=== PATIENT | male | born 1965 | race Two or more races ===

== ENCOUNTER 2025-05-14 15:07 | Inpatient (IN) | payer MEDICAID, OTHER ==
[~2025-05-14] VITALS: Ht 175.3 cm; Wt 80.5 kg
--- NOTE | 2025-05-14 16:26 | ED.PDOC ---
General HPI Comments 59 y.o male presents to the ED for a chief complaint of left sided flank pain radiating to his left side abdomen that started 3 days ago. Patient describes pain as sharp, constant and at this time rates it a 5/10 on the pain scale but does increase to a 10/10 at its worse. Patient denies any history of kidney stones, nausea, vomiting, fever, chills, hematuria or dysuria. Chief Complaint: Flank Pain Time Seen by MD: 15:57 Reviewed notes: Nurses Notes, Medications, Allergies Allergies: Coded Allergies: NO KNOWN ALLERGIES (Unverified , 05/14/25) Information Source: Patient Mode of Arrival: Ambulatory Severity: Moderate Timing: Days (3) Duration: Since onset Onset: Spontaneous Symptoms: None History of: None Location: Abdomen, (L)Flank Penile discharge: None associated signs and symptoms: Abdominal Pain, Flank Pain Past Medical History PAST MEDICAL HISTORY: Denies Surgical History: Denies all surgeries Surgical History (Other): right ankle fx Family History Family History: Reviewed,noncontributory to illness Social History Smoker: Non-Smoker Alcohol: Denies ETOH Use Drugs: Denies Drug Use Lives In: Home Constitutional: denies: chills, diaphoresis, fatigue, fever, malaise, sweats, weakness, others EENTM: denies: blurred vision, double vision, ear bleeding, ear discharge, ear drainage, ear pain, ear ringing, eye pain, eye redness, hearing loss, mouth pain, mouth swelling, nasal discharge, nose bleeding, nose congestion, nose pain, photophobia, tearing, throat pain, throat swelling, voice changes, others Respiratory: denies: cough, hemoptysis, orthopnea, SOB at rest, shortness of breath, SOB with excertion, stridor, wheezing, others Cardiovascular: denies: chest pain, dizzy spells, diaphoresis, Dyspnea on exertion, edema, irregular heart beat, left arm pain, lightheadedness, palpitations, PND, syncope, others Gastrointestinal: reports: abdominal pain; denies: abdomen distended, blood streaked bowels, constipated, diarrhea, dysphagia, difficulty swallowing, hematemesis, melena, nausea, poor appetite, poor fluid intake, rectal bleeding, rectal pain, vomiting, others Genitourinary: reports: flank pain; denies: burning, dysuria, frequency, hematuria, incontinence, penile discharge, penile sore, pain, testicle pain, testicle swelling, urgency, others Neurological: denies: dizziness, fainting, headache, left sided numbness, left sided weakness, numbness, paresthesia, pre-existing deficit, right sided numbness, right sided weakness, seizure, speech problems, tingling, tremors, weakness, others Musculoskeletal: denies: back pain, gout, joint pain, joint swelling, muscle pain, muscle stiffness, neck pain, others Integumetry: denies: bruises, change in color, change in hair/nails, dryness, laceration, lesions, lumps, rash, wounds, others Allergic/Immunocompromised: denies: Difficulty Healing, Frequent Infections, Hives, Itching, others Hematologic/Lymphatic: denies: anemia, blood clots, easy bleeding, easy bruis ing, swollen glands, others Endocrine: denies: excessive hunger, excessive sweating, excessive thirst, exc essive urination, flushing, intolerance to cold, intolerance to heat, unexplained weight gain, unexplained weight loss, others Psychiatric: denies: anxiety, bipolar disorder, depression, hopeless, panic disorder, schizophrenia, sleepless, suicidal, others All Other Systems: Reviewed and Negative Physical Exam General Appearance: No Apparent Distress, Normal HEENT: Normal ENT Inspection, Pharynx Normal, TMs Normal Neck: Full Range of Motion, Non-Tender, Normal, Normal Inspection Respiratory: Chest Non-Tender, Lungs Clear, No Accessory Muscle Use, No Respiratory Distress, Normal Breath Sounds Cardiovascular: No Edema, No JVD, No Murmur, No Gallop, Normal Peripheral Pulses, Regular Rate/Rhythm Breast Exam: Deferred Gastrointestinal: No Organomegaly, No Pulsatile Mass, Tenderness (left sided abdomen ) Genitalia: Deferred Pelvic: Deferred Rectal: Deferred Extremities: No calf tenderness, Normal capillary refill, Normal inspection, Normal range of motion, Non-tender, No pedal edema Musculoskeletal : Apperance: Normal Neurologic: Alert, community health advocate II-XII nml as Tested, No Motor Deficits, Normal Affect, Normal Mood, No Sensory Deficits Cerebellar Function: Normal Reflexes: Normal Skin: Dry, Normal Color, Warm Lymphatic: No Adenopathy Was a procedure done? Was a procedure done?: No Differential Diagnosis Kidney stone (Female): N/A Kidney stone (Male): Pancreatitis, Pyelonephritis, Renal failure, Strain Urinary Problem (Male): UTI Other Differential Diagnosis Diverticulitis X-Ray, Labs, Meds, VS Vital Signs Date Time Temp Pulse Resp B/P (MAP) Pulse Ox O2 Delivery O2 Flow Rate FiO2 05/14/25 15:10 98.1 91 16 156/86 98 98.1 Lab Test 05/14/25 16:15 Range/Units White Blood Count 11.2 H 4.4-10.8 10^3/uL Red Blood Count 5.14 4.5-5.90 10^6/uL Hemoglobin 14.5 13.5-17.5 g/dL Hematocrit 42.5 41.0-53.0 % Mean Corpuscular Volume 82.7 80.0-100.0 fL Mean Corpuscular Hemoglobin 28.1 28.0-32.0 pg Mean Corpuscular Hemoglobin Concent 34.0 32.0-36.0 g/dL Red Cell Distribution Width 13.6 11.8-14.3 % Platelet Count 282 140-450 10^3/uL Mean Platelet Volume 7.7 6.9-10.8 fL Neutrophils (%) (Auto) 67.4 37.0-80.0 % Lymphocytes (%) (Auto) 18.7 10.0-50.0 % Monocytes (%) (Auto) 12.3 H 0.0-12.0 % Eosinophils (%) (Auto) 1.0 0.0-7.0 % Basophils (%) (Auto) 0.6 0.0-2.0 % Neutrophils # (Auto) 7.6 1.6-8.6 10 ^3/uL Lymphocytes # (Auto) 2.1 0.4-5.4 10 ^3/uL Monocytes # (Auto) 1.4 H 0-1.3 10 ^3/uL Eosinophils # (Auto) 0.1 0-0.8 10 ^3/uL Basophils # (Auto) 0.1 0-0.2 10 ^3/uL Nucleated Red Blood Cells 0.1 % Sodium Level 139 136-145 mmol/L Potassium Level 4.4 3.5-5.1 mmol/L Chloride Level 101 98-107 mmol/L Carbon Dioxide Level 28 20-31 mmol/L Anion Gap 10 5-15 Blood Urea Nitrogen 21 9-23 mg/dL Creatinine 1.64 H 0.700-1.30 mg/dL Glomerular Filtration Rate Calc 48 >90 mL/min BUN/Creatinine Ratio 12.8 10.0-20.0 Serum Glucose 107 H 74-106 mg/dL Calcium Level 9.5 8.7-10.4 mg/dL Total Bilirubin 0.6 0.2-1.0 mg/dL Aspartate Amino Transferase (AST) 28 13-40 U/L Alanine Aminotransferase (ALT) 33 7-40 U/L Alkaline Phosphatase 143 H 46-116 U/L Total Protein 7.9 5.7-8.2 g/dL Albumin 4.7 3.2-4.8 g/dL Lipase 58 H 12-53 U/L X-Ray, Labs, Meds, VS Comment Patient has a obstructing renal calculi in the right side with secondary urinary tract infection Patient will be admitted for observation and Urology consult Patient be started on Rocephin 1 g Patient hemodynamically stable Time of 1ST Reevaluation: 16:26 Reevaluation 1ST: Unchanged Patient Education/Counseling: Diagnosis, Treatment, Prognosis, Need For Follow Up Family Education/Counseling: No Family Present SEPSIS Sepsis Screen Date sepsis recognized/suspect: May 14, 2025 Time Sepsis recognized/suspect: 1510 Recent Procedure: No On Antibiotic Therapy: No Respiratory Rate >20: No Heart Rate >90: No Temp<36 C (96.8 F) or >38.3 C: No SBP <90 or MAP <65 mmHG: No New Acute Mental Status Change: No Is the patient on CPAP, BIPAP,: No Physician Orders Urinalysis (05/14/25 16:04) Ct Ab Pel Wo Con-No Oral Or Iv (05/14/25 16:04) Vital Signs Date Time Temp Pulse Resp B/P (MAP) Pulse Ox O2 Delivery O2 Flow Rate FiO2 05/14/25 15:10 98.1 91 16 156/86 98 98.1 Laboratory Tests Test 05/14/25 16:15 White Blood Count 11.2 10^3/uL (4.4-10.8) H Departure 1 Departure Time of Disposition: 18:10 Impression: Primary Impression: Hydronephrosis with renal calculous obstruction Additional Impression: Urinary tract infection Qualified Codes: N30.00 - Acute cystitis without hematuria Disposition: ADMITTED INPATIENT Condition: Stable Discharged With: Self Critical Care Note Critical Care Time?: No Stability Stability form required: No I personally scribed for BRENTON TELLO ([facility]) on 05/14/25 at 16:26. Electronically submitted by Shasha Nguyen ([facility]). BRENTON TELLO May 14, 2025 16:26
[2025-05-14 16:44] LABS: Hematocrit 42.5 % (41.0-53.0); Hemoglobin 14.5 g/dL (13.5-17.5); Mean Corpuscular Hemoglobin 28.1 pg (28.0-32.0); Mean Corpuscular Volume 82.7 fL (80.0-100.0); Nucleated Red Blood Cells % 0.1 %
[2025-05-14 17:00] LABS: Alanine Aminotransferase 33 U/L (7-40); Albumin 4.7 g/dL (3.2-4.8); Anion Gap 10 (5-15); BUN/Creatinine Ratio 12.8 (10.0-20.0); Blood Urea Nitrogen 21 mg/dL (9-23); Calcium 9.5 mg/dL (8.7-10.4); Carbon Dioxide 28 mmol/L (20-31); Chloride 101 mmol/L (98-107); Potassium 4.4 mmol/L (3.5-5.1); Sodium 139 mmol/L (136-145); Total Protein 7.9 g/dL (5.7-8.2)
[2025-05-14 17:01] LABS: Bilirubin, Total 0.6 mg/dL (0.2-1.0)
[2025-05-14 17:06] LABS: Alkaline Phosphatase 143 U/L (46-116); Glucose 107 mg/dL (74-106); Lipase 58 U/L (12-53)
--- NOTE | 2025-05-14 17:33 | DVH ---
CLINICAL HISTORY: abd pain TECHNIQUE: CT of the abdomen and pelvis was performed without intravenous contrast. This exam was performed according to our departmental dose optimization program. Up-to-date CT equipment and radiation dose reduction techniques are utilized as appropriate. CTDI: 14.75 DLP: 861.09 WID: COMPARISON: None FINDINGS: Lower Thorax: Normal-sized heart with trace pericardial fluid. Linear bibasilar scarring or atelectasis. Liver and Biliary system: Normal-sized liver. There is heterogeneous hepatic steatosis. No definite hepatic lesion. The gallbladder is normal caliber. There is no biliary ductal dilatation. Spleen: Unremarkable. Adrenal Glands and Kidneys: Normal adrenal glands. There is an obstructing 4.7 mm calculus in the proximal left ureter resulting in mild left hydroureteronephrosis and left urothelial thickening and periureteral soft tissue stranding. There is bilateral nonspecific perinephric stranding. Bilateral lobulation of the kidneys. Tiny nonobstructing right renal calculi. Pancreas and Retroperitoneum: Unremarkable. Aorta and Major Vessels: Aortoiliac vessels are normal in caliber with mild calcified atherosclerotic plaque. Bowel, Mesentery and Peritoneal space: Normal caliber small and large bowel. There is mild colonic diverticulosis. Normal appendix. No free air or fluid collection. Pelvis: Unremarkable. Abdominal wall and Osseous Structures: Mild left curvature of the lumbar spine. There is multilevel lower thoracic and lumbar spondylosis. No destructive osseous lesion. Tiny sclerotic foci in the proximal femurs and pelvis, likely bone islands. IMPRESSION: 1. Obstructing 4.7 mm calculus in the proximal left ureter causing mild left hydroureteronephrosis and mild left urothelial thickening. 2. Tiny nonobstructing right renal calculi. 3. Heterogeneous hepatic steatosis. 4. Mild colonic diverticulosis.
[2025-05-14 18:53] VITALS: PULSE 94; RESP 19; O2SAT 96
[2025-05-14] MEDS: ONDANSETRON HCL 4 MG/2 ML VIAL IV ONE (18:53)
[2025-05-14 18:54] LABS: Urine Protein, UAD Negative (Negative)
[2025-05-14] MEDS: MORPHINE SULFATE 4 MG/ML SYR/VIAL IV ONE (18:54)
--- NOTE | 2025-05-14 23:12 | DVHHPRES ---
History of Present Illness Resident Creating Document: VERONA SOTO History of Present Illness Patient is a [place] Zealander-speaking 59-year-old male with no significant past medical history, presented to [facility] ED with complaint of left-sided flank pain. Patient reports the pain radiating to the left abdominal area, which began three days ago. Patient describes the pain as sharp and constant. He currently rates it as 7/10 on the pain scale, with episodes reaching 10/10 at its worst. He denies any history of kidney stones, nausea, vomiting, fever, chills, hematuria, or dysuria. Patient reports that he checks his blood pressure and blood glucose levels daily at home, and both have remained within normal limits. On evaluation in the ED, patient is afebrile, blood pressure is 156/97 mmHg. Initial labs show WBC 11.2, creatinine 1.64, serum glucose 107, creatinine 1.64, ALP 143, and lipase 58. Abdominal CT shows obstructing 4.7 mm calculus in the proximal left ureter causing mild left hydroureteronephrosis and mild left urothelial thickening. The patient was started on IV antibiotics and IV fluids. Patient is admitted for further evaluation and management. Past Surgical History Right ankle fracture surgery (2009) Family History: None Smoke: No ALCOHOL: none Drugs: None Lives: with Family Review of Systems Review of Systems Eyes: No Pain, No Vision change, No Conjunctivae inflammation, No Eyelid inflammation, No Other, No Redness ENT: No Ear pain, No Ear discharge, No Nose pain, No Nose discharge, No Nose congestion, No Mouth pain, No Mouth swelling, No Throat pain, No Throat swelling, No Other Cardiovascular: No Chest Pain, No Palpitations, No Orthopnea, No Paroxysmal No Dyspnea, No Edema, No Lt Headedness, No Other Respiratory: No Cough, No Dry, No Shortness of breath, No SOB with exertion, No Wheezing, No Hemoptysis, No Pleuritic Pain, No Sputum, No Other Gastrointestinal: Nausea, Vomiting, Abdominal Pain, No Diarrhea, No Constipation, No Melena, No Hematochezia, No Other Genitourinary: No Dysuria, No Frequency, No Incontinence, No Hematuria, No Retention, No Other Musculoskeletal: No other, No neck pain, No shoulder pain, No arm pain, No back pain, No hand pain, No leg pain, No foot pain Skin: No Rash, No Lesions, No Jaundice, No Bruising, No Other Allergies: Coded Allergies: NO KNOWN ALLERGIES (Unverified , 05/14/25) Exam Vital Signs Vital Signs Date Time Temp Pulse Resp B/P (MAP) Pulse Ox O2 Delivery O2 Flow Rate FiO2 05/14/25 19:30 91 17 156/97 (116) 97 05/14/25 18:53 Room Air* 0 21 05/14/25 18:53 98.0 98.0 Exam General Appearance: Cooperative. Well developed. Well nourished. NAD Head Exam: Normal inspection Neck Exam: Normal inspection. Non-tender. Normal alignment Pulmonary/Respiratory: Chest non-tender. Clear bilateral breath sounds, no crackles, no wheezing. Cardiovascular/Chest: Regular rate and rhythm. No murmurs. No JVD. Peripheral Pulses: 2+ Radial (R). 2+ Radial (L). 2+ Pedal (R). 2+ Pedal (L) Abdominal Exam: Tenderness to palpation in the left lower quadrant (LLQ) and left upper quadrant (LUQ). Left CVA tenderness. Normal bowel sounds. Soft. normal abdomen, no visible veins, No hepatospenomegaly. No masses Ankle Exam: Negative ankle edema Lower extremities: Negative lower extremity edema Neuro/Mental Status: A&O x4. Coherent. Thoughts/Psych: Normal thought pattern. Appropriate mood and affect. Good judgement and insight Skin Exam: Normal inspection. Normal color. Warm. Dry Labs/Xrays Labs Test 05/14/25 16:15 05/14/25 15:56 Range/Units White Blood Count 11.2 H 4.4-10.8 10^3/uL Red Blood Count 5.14 4.5-5.90 10^6/uL Hemoglobin 14.5 13.5-17.5 g/dL Hematocrit 42.5 41.0-53.0 % Mean Corpuscular Volume 82.7 80.0-100.0 fL Mean Corpuscular Hemoglobin 28.1 28.0-32.0 pg Mean Corpuscular Hemoglobin Concent 34.0 32.0-36.0 g/dL Red Cell Distribution Width 13.6 11.8-14.3 % Platelet Count 282 140-450 10^3/uL Mean Platelet Volume 7.7 6.9-10.8 fL Neutrophils (%) (Auto) 67.4 37.0-80.0 % Lymphocytes (%) (Auto) 18.7 10.0-50.0 % Monocytes (%) (Auto) 12.3 H 0.0-12.0 % Eosinophils (%) (Auto) 1.0 0.0-7.0 % Basophils (%) (Auto) 0.6 0.0-2.0 % Neutrophils # (Auto) 7.6 1.6-8.6 10 ^3/uL Lymphocytes # (Auto) 2.1 0.4-5.4 10 ^3/uL Monocytes # (Auto) 1.4 H 0-1.3 10 ^3/uL Eosinophils # (Auto) 0.1 0-0.8 10 ^3/uL Basophils # (Auto) 0.1 0-0.2 10 ^3/uL Nucleated Red Blood Cells 0.1 % Sodium Level 139 136-145 mmol/L Potassium Level 4.4 3.5-5.1 mmol/L Chloride Level 101 98-107 mmol/L Carbon Dioxide Level 28 20-31 mmol/L Anion Gap 10 5-15 Blood Urea Nitrogen 21 9-23 mg/dL Creatinine 1.64 H 0.700-1.30 mg/dL Glomerular Filtration Rate Calc 48 >90 mL/min BUN/Creatinine Ratio 12.8 10.0-20.0 Serum Glucose 107 H 74-106 mg/dL Calcium Level 9.5 8.7-10.4 mg/dL Total Bilirubin 0.6 0.2-1.0 mg/dL Aspartate Amino Transferase (AST) 28 13-40 U/L Alanine Aminotransferase (ALT) 33 7-40 U/L Alkaline Phosphatase 143 H 46-116 U/L Total Protein 7.9 5.7-8.2 g/dL Albumin 4.7 3.2-4.8 g/dL Lipase 58 H 12-53 U/L Urine Color Colorless Yellow Urine Clarity Clear Clear Urine pH 5.5 5.0-9.0 Urine Specific [place] 1.008 1.001-1.035 Urine Protein Negative Negative Urine Ketones Negative Negative Urine Blood 1+ H Negative /uL Urine Nitrite Negative Negative Urine Bilirubin Negative Negative Urine Urobilinogen Normal Negative mg/dL Urine Leukocyte Esterase Negative Negative /uL Urine RBC 1 0 - 3 /hpf Urine Microscopic WBC < 1 0-3 /HPF Urine Squamous Epithelial Cells None seen <5 /hpf Urine Bacteria None seen None Seen /hpf Urine Glucose Normal Normal mg/dL SEPSIS Sepsis Screen Date sepsis recognized/suspect: May 14, 2025 Time Sepsis recognized/suspect: 1510 Recent Procedure: No On Antibiotic Therapy: No Respiratory Rate >20: No Heart Rate >90: No Temp<36 C (96.8 F) or >38.3 C: No SBP <90 or MAP <65 mmHG: No New Acute Mental Status Change: No Is the patient on CPAP, BIPAP,: No Physician Orders Ct Ab Pel Wo Con-No Oral Or Iv (05/14/25 16:04) Vital Signs Date Time Temp Pulse Resp B/P (MAP) Pulse Ox O2 Delivery O2 Flow Rate FiO2 05/14/25 19:30 91 17 156/97 (116) 97 05/14/25 19:29 91 17 156/95 05/14/25 18:54 94 19 177/108 05/14/25 18:53 94 19 96 Room Air* 0 21 05/14/25 18:53 98.0 94 19 177/108 (131) 96 98.0 05/14/25 18:30 97.3 125 19 156/110 (125) 98 97.3 Laboratory Tests Test 05/14/25 16:15 White Blood Count 11.2 10^3/uL (4.4-10.8) H Medications Medications Dose Ordered Sig/Jim Route Start Time Stop Time Status Last Admin Dose Admin Ceftriaxone Sodium 50 ml @ 100 mls/hr ONCE ONCE IV 05/14/25 18:15 05/14/25 18:44 DC 05/14/25 18:53 100 MLS/HR Morphine Sulfate 4 mg ONCE ONCE IV 05/14/25 18:15 05/14/25 18:28 DC 05/14/25 18:54 4 MG Ondansetron HCl 4 mg ONCE ONCE IV 05/14/25 18:15 05/14/25 18:28 DC 05/14/25 18:53 4 MG Assessment/Plan Assessment/Plan Obstructing left nephrolithiasis with left hydroureteronephrosis Nonobstructing right nephrolithiasis Hepatic steatosis Colonic diverticulosis Intractable abdominal pain due to above Chest X-ray: No acute disease. Abdomen/Pelvis CT: Obstructing 4.7 mm calculus in the proximal left ureter causing mild left hydroureteronephrosis and mild left urothelial thickening. Tiny nonobstructing right renal calculi. Heterogeneous hepatic steatosis. Mild colonic diverticulosis. Urology consult Ceftriaxone IV daily pain management with [place] 1 TAB PO q4h and Dilaudid 0.5 MG IV q4h Zofran 4 MG IV q4h IV NS 125 MLS/HR NS 500 MLS/HR Tamsulosin 0.4 MG PO qpm Tamsulosin 0.4 MG PO once MAX on CKD due to VMN monitor avoid nephrotoxic agents IV fluid given Diet: Regular Goals of care: Full code, discussed for >30 minutes on 05/14/25 Plan discussed with patient Plan discussed with Dr. Melissa Plan discussed with: Patient, Son Date of Service: May 14, 2025 Billing Provider: JANE MELISSA MD Common Visit Codes: 91276-[id number] INP/OBS CARE (HIGH) Secondary Visit Codes: [id number] CARE PLAN 30 MINUTES VERONA SOTO RESIDENT May 14, 2025 23:12
[2025-05-14] MEDS: ONDANSETRON HCL 4 MG/2 ML VIAL IV PRN (23:45)
[2025-05-14] MEDS: TAMSULOSIN HYDROCHLORIDE 0.4 MG CAP PO ONE (23:45)
[2025-05-14] MEDS: HYDROmorphone HCL 2 MG/ML VL/or syr IV PRN (23:46)
[2025-05-14] MEDS: SODIUM CHLORIDE 0.9% 500 ML IV ONE (23:46)
--- NOTE | 2025-05-15 00:48 | DVH ---
CHEST RADIOGRAPH Indication: chest pain Technique: Single frontal view of the chest was obtained COMPARISON: None FINDINGS: Lungs and pleural spaces are clear. Cardiac silhouette and jojo are within normal limits. Bones and soft tissues demonstrate no significant abnormality. IMPRESSION: No acute disease.
[2025-05-15] MEDS: SODIUM CHLORIDE 0.9% 1,000 ML IV ONE (00:55)
[2025-05-15] MEDS: HYDROcodone-ACET 5/325MG TAB PO PRN (02:59)
[2025-05-15 03:24] LABS: Hematocrit 38.5 % (41.0-53.0); Hemoglobin 12.7 g/dL (13.5-17.5); Mean Corpuscular Hemoglobin 27.6 pg (28.0-32.0); Mean Corpuscular Volume 83.4 fL (80.0-100.0); Nucleated Red Blood Cells % 0.0 %
[2025-05-15] MEDS: HYDROmorphone HCL 2 MG/ML VL/or syr IV ONE (03:30)
[2025-05-15 03:45] LABS: Alanine Aminotransferase 24 U/L (7-40); Anion Gap 11 (5-15); BUN/Creatinine Ratio 11.7 (10.0-20.0); Blood Urea Nitrogen 19 mg/dL (9-23); Calcium 9.0 mg/dL (8.7-10.4); Carbon Dioxide 25 mmol/L (20-31); Chloride 103 mmol/L (98-107); Lipase 42 U/L (12-53); Potassium 4.5 mmol/L (3.5-5.1); Sodium 139 mmol/L (136-145)
[2025-05-15 03:46] LABS: Total Protein 7.4 g/dL (5.7-8.2)
[2025-05-15 03:47] LABS: Albumin 4.2 g/dL (3.2-4.8); Bilirubin, Total 0.6 mg/dL (0.2-1.0)
[2025-05-15 03:57] LABS: Alkaline Phosphatase 122 U/L (46-116); Glucose 126 mg/dL (74-106)
[2025-05-15 04:00] VITALS: BP 111/66; PULSE 85; RESP 12; O2SAT 92
[2025-05-15] MEDS: SODIUM CHLOR 0.9% PF (SALINE LOCK) 10ML VIAL/SYR IV SCH (05:35)
[2025-05-15 09:20] VITALS: BP 133/80; PULSE 104; RESP 18; TEMP 97.9; O2SAT 94
--- NOTE | 2025-05-15 11:22 | DVHINCON2 ---
Date of service: May 15, 2025 Referring Physician Hospitalist Reason for Consultation 4.7 mm proximal left ureteral stone with mild hydronephrosis History of Present Illness 59 y.o male admitted to [facility] for a chief complaint of left sided flank pain radiating to his left side abdomen that started 3 days ago. Patient describes pain as sharp, constant and at this time rates it a 5/10 on the pain scale but does increase to a 10/10 at its worse. Patient denies any history of kidney stones, nausea, vomiting, fever, chills, hematuria or dysuria. Chief Complaint: Flank Pain Reviewed notes: Nurses Notes, Medications, Allergies Allergies: Coded Allergies: NO KNOWN ALLERGIES (Unverified , 05/14/25) Information Source: Patient Mode of Arrival: Ambulatory Severity: Moderate Timing: Days (3) Duration: Since onset Onset: Spontaneous Symptoms: None History of: None Location: Abdomen, (L)Flank Penile discharge: None associated signs and symptoms: Abdominal Pain, Flank Pain Past Medical History Denies Past Surgical History right ankle fx Family History: Patient reports no known family medical history. Allergies: Coded Allergies: NO KNOWN ALLERGIES (Unverified , 05/14/25) Home Meds No Active Prescriptions or Reported Meds Current Medications Current Medications Medications (Trade) Dose Ordered Sig/Jim Route PRN Reason Start Time Stop Time Status Last Admin Sodium Chloride (Saline Lock Ns) 10 ml Q8HR IV 05/15/25 06:00 05/15/25 05:35 Acetaminophen/ Hydrocodone Bitart ([place] 5/325MG Tab) 1 tab Q4HP PRN PO MODERATE PAIN (4-6 PAIN SCALE) 05/14/25 23:15 05/15/25 02:59 Ondansetron HCl (Zofran) 4 mg Q4HP PRN IV NAUSEA / VOMITING 05/14/25 23:15 05/14/25 23:45 Hydromorphone HCl (Dilaudid Injection) 0.5 mg Q4HPRN PRN IV SEVERE PAIN (7-10 PAIN SCALE) 05/14/25 23:15 05/14/25 23:46 Tamsulosin HCl (Flomax) 0.4 mg QPM PO 05/15/25 18:00 Ceftriaxone Sodium 50 ml @ 100 mls/hr DAILY@09 IV 05/15/25 09:00 05/15/25 10:03 Review of Systems Constitutional: denies: chills, diaphoresis, fatigue, fever, malaise, sweats, weakness, others EENTM: denies: blurred vision, double vision, ear bleeding, ear discharge, ear drainage, ear pain, ear ringing, eye pain, eye redness, hearing loss, mouth pain, mouth swelling, nasal discharge, nose bleeding, nose congestion, nose pain, photophobia, tearing, throat pain, throat swelling, voice changes, others Respiratory: denies: cough, hemoptysis, orthopnea, SOB at rest, shortness of breath, SOB with excertion, stridor, wheezing, others Cardiovascular: denies: chest pain, dizzy spells, diaphoresis, Dyspnea on exe rtion, edema, irregular heart beat, left arm pain, lightheadedness, palpitations, PND, syncope, others Gastrointestinal: reports: abdominal pain; denies: abdomen distended, blood streaked bowels, constipated, diarrhea, dysphagia, difficulty swallowing, hematemesis, melena, nausea, poor appetite, poor fluid intake, rectal bleeding, rectal pain, vomiting, others Genitourinary: reports: flank pain; denies: burning, dysuria, frequency, hematuria, incontinence, penile discharge, penile sore, pain, testicle pain, testicle swelling, urgency, others Neurological: denies: dizziness, fainting, headache, left sided numbness, left sided weakness, numbness, paresthesia, pre-existing deficit, right sided numbness, right sided weakness, seizure, speech problems, tingling, tremors, weakness, others Musculoskeletal: denies: back pain, gout, joint pain, joint swelling, muscle pain, muscle stiffness, neck pain, others Integumetry: denies: bruises, change in color, change in hair/nails, dryness, laceration, lesions, lumps, rash, wounds, others Allergic/Immunocompromised: denies: Difficulty Healing, Frequent Infections, Hives, Itching, others Hematologic/Lymphatic: denies: anemia, blood clots, easy bleeding, easy bruising, swollen glands, others Endocrine: denies: excessive hunger, excessive sweating, excessive thirst, excessive urination, flushing, intolerance to cold, intolerance to heat, unexplained weight gain, unexplained weight loss, others Psychiatric: denies: anxiety, bipolar disorder, depression, hopeless, panic disorder, schizophrenia, sleepless, suicidal, others All Other Systems: Reviewed and Negative Vital Signs Vital Signs Date Time Temp Pulse Resp B/P (MAP) Pulse Ox O2 Delivery O2 Flow Rate FiO2 05/15/25 09:20 97.9 104 18 133/80 (97) 94 97.9 05/15/25 00:43 Room Air* 0 21 Physical Exam General Appearance: No Apparent Distress, Normal HEENT: Normal ENT Inspection, Pharynx Normal, TMs Normal Neck: Full Range of Motion, Non-Tender, Normal, Normal Inspection Respiratory: Chest Non-Tender, Lungs Clear, No Accessory Muscle Use, No Respiratory Distress, Normal Breath Sounds Cardiovascular: No Edema, No JVD, No Murmur, No Gallop, Normal Peripheral Pulses, Regular Rate/Rhythm Breast Exam: Deferred Gastrointestinal: No Organomegaly, No Pulsatile Mass, Tenderness (left sided abdomen ) Genitalia: Deferred Pelvic: Deferred Rectal: Deferred Extremities: No calf tenderness, Normal capillary refill, Normal inspection, Normal range of motion, Non-tender, No pedal edema Musculoskeletal : Apperance: Normal Neurologic: Alert, assembler insulator II-XII nml as Tested, No Motor Deficits, Normal Affect, Normal Mood, No Sensory Deficits Cerebellar Function: Normal Reflexes: Normal Skin: Dry, Normal Color, Warm Lymphatic: No Adenopathy Labs/Diagnostic Data Labs Test 05/15/25 02:55 05/14/25 15:56 Range/Units White Blood Count 12.4 H 4.4-10.8 10^3/uL Red Blood Count 4.61 4.5-5.90 10^6/uL Hemoglobin 12.7 L 13.5-17.5 g/dL Hematocrit 38.5 L 41.0-53.0 % Mean Corpuscular Volume 83.4 80.0-100.0 fL Mean Corpuscular Hemoglobin 27.6 L 28.0-32.0 pg Mean Corpuscular Hemoglobin Concent 33.2 32.0-36.0 g/dL Red Cell Distribution Width 13.2 11.8-14.3 % Platelet Count 235 140-450 10^3/uL Mean Platelet Volume 7.7 6.9-10.8 fL Neutrophils (%) (Auto) 79.3 37.0-80.0 % Lymphocytes (%) (Auto) 10.4 10.0-50.0 % Monocytes (%) (Auto) 9.3 0.0-12.0 % Eosinophils (%) (Auto) 0.4 0.0-7.0 % Basophils (%) (Auto) 0.6 0.0-2.0 % Neutrophils # (Auto) 9.9 H 1.6-8.6 10 ^3/uL Lymphocytes # (Auto) 1.3 0.4-5.4 10 ^3/uL Monocytes # (Auto) 1.2 0-1.3 10 ^3/uL Eosinophils # (Auto) 0.1 0-0.8 10 ^3/uL Basophils # (Auto) 0.1 0-0.2 10 ^3/uL Nucleated Red Blood Cells 0.0 % Sodium Level 139 136-145 mmol/L Potassium Level 4.5 3.5-5.1 mmol/L Chloride Level 103 98-107 mmol/L Carbon Dioxide Level 25 20-31 mmol/L Anion Gap 11 5-15 Blood Urea Nitrogen 19 9-23 mg/dL Creatinine 1.63 H 0.700-1.30 mg/dL Glomerular Filtration Rate Calc 48 >90 mL/min BUN/Creatinine Ratio 11.7 10.0-20.0 Serum Glucose 126 H 74-106 mg/dL Calcium Level 9.0 8.7-10.4 mg/dL Total Bilirubin 0.6 0.2-1.0 mg/dL Aspartate Amino Transferase (AST) 23 13-40 U/L Alanine Aminotransferase (ALT) 24 7-40 U/L Alkaline Phosphatase 122 H 46-116 U/L Total Protein 7.4 5.7-8.2 g/dL Albumin 4.2 3.2-4.8 g/dL Lipase 42 12-53 U/L Urine Color Colorless Yellow Urine Clarity Clear Clear Urine pH 5.5 5.0-9.0 Urine Specific [place] 1.008 1.001-1.035 Urine Protein Negative Negative Urine Ketones Negative Negative Urine Blood 1+ H Negative /uL Urine Nitrite Negative Negative Urine Bilirubin Negative Negative Urine Urobilinogen Normal Negative mg/dL Urine Leukocyte Esterase Negative Negative /uL Urine RBC 1 0 - 3 /hpf Urine Microscopic WBC < 1 0-3 /HPF Urine Squamous Epithelial Cells None seen <5 /hpf Urine Bacteria None seen None Seen /hpf Urine Glucose Normal Normal mg/dL PATIENT: GALLITO-JOSE,REYNALDOACCT: [id number] UNIT: [id number] : 1965 LOC: ER ROOM / BED: / AGE / SEX: 59 / M ADM STATUS: REG ER SERVICE 1604 ORDERING PHYSICIAN: BRENTON TELLO PROCEDURE(s): ABPL - CT AB PEL WO CON-NO ORAL OR IV REASON: abd pain ORDER NUMBER(s): [id number], ACCESSION NUMBER(s): [id number] CLINICAL HISTORY: abd pain TECHNIQUE: CT of the abdomen and pelvis was performed without intravenous contrast. This exam was performed according to our departmental dose optimization program. Up-to-date CT equipment and radiation dose reduction techniques are utilized as appropriate. CTDI: 14.75 DLP: 861.09 WID: COMPARISON: None FINDINGS: Lower Thorax: Normal-sized heart with trace pericardial fluid. Linear bibasilar scarring or atelectasis. Liver and Biliary system: Normal-sized liver. There is heterogeneous hepatic steatosis. No definite hepatic lesion. The gallbladder is normal caliber. There is no biliary ductal dilatation. Spleen: Unremarkable. Adrenal Glands and Kidneys: Normal adrenal glands. There is an obstructing 4.7 mm calculus in the proximal left ureter resulting in mild left hydroureteronephrosis and left urothelial thickening and periureteral soft tissue stranding. There is bilateral nonspecific perinephric stranding. Bilateral lobulation of the kidneys. Tiny nonobstructing right renal calculi. Pancreas and Retroperitoneum: Unremarkable. Aorta and Major Vessels: Aortoiliac vessels are normal in caliber with mild calcified atherosclerotic plaque. Bowel, Mesentery and Peritoneal space: Normal caliber small and large bowel. There is mild colonic diverticulosis. Normal appendix. No free air or fluid collection. Pelvis: Unremarkable. Abdominal wall and Osseous Structures: Mild left curvature of the lumbar spine. There is multilevel lower thoracic and lumbar spondylosis. No destructive osseous lesion. Tiny sclerotic foci in the proximal femurs and pelvis, likely bone islands. IMPRESSION: 1. Obstructing 4.7 mm calculus in the proximal left ureter causing mild left hydroureteronephrosis and mild left urothelial thickening. 2. Tiny nonobstructing right renal calculi. 3. Heterogeneous hepatic steatosis. 4. Mild colonic diverticulosis. ATED BY: SHADE TAYLOR MD DICTATED DATE/TIME: 05/14/251730 SIGNED BY: SHADE TAYLOR MD SIGNED DATE/TIME: 05/14/251730 CC: Assessment 4.7 mm proximal left ureteral stone with mild hydronephrosis Plan/Recommendation Expulsive measures Pain control Bladder US to look for ureteral jetting ESWL with possible stent placement TBA (inpatient Saturday05/18/25 vs. outpt based on OR availability) Plan discussed with: Patient, Other TAMIKA SORIA MD May 15, 2025 11:22
[2025-05-15] MEDS: MANNITOL FTV 25% 12.5 GM/50 ML 50 ML IV ONE (12:29)
[2025-05-15 12:42] VITALS: BP 135/67; PULSE 81; RESP 18; TEMP 98.1; O2SAT 97
--- NOTE | 2025-05-15 15:36 | DVH ---
INDICATION: look for ureteral jetting TECHNIQUE: Multiple real-time grayscale transabdominal sonographic images along with color and duplex Doppler of the uterus and ovaries were obtained. COMPARISON: None FINDINGS: Bladder contains 284.34 mL. Bladder wall measures 1.47 mm Right and left ureteral jets are visualized. IMPRESSION: 1. Bilateral ureteral jets are visualized. 2. Bladder volume prevoid 284 mL. 3. Postvoid bladder volume not obtained. 4. Wall of the bladder measures 1.5 mm
--- NOTE | 2025-05-15 15:58 | DVHPN2 ---
Subjective pAIN IS BETTER Changes from previous H/P or p: No Changes Objective Vitals Vital Signs Date Time Temp Pulse Resp B/P (MAP) Pulse Ox O2 Delivery O2 Flow Rate FiO2 05/15/25 12:42 98.1 81 18 135/67 (89) 97 98.1 05/15/25 00:43 Room Air* 0 21 Intake/Output Intake and Output 05/15/25 07:00 Intake Total 550 ml Balance 550 ml Intake IV Total 550 ml General Appearance: Alert, Oriented X3, Cooperative, No acute distress Lungs: Clear to auscultation Cardiovascular: Regular rate, Normal S1, Normal S2 Abdomen: Normal bowel sounds, Soft, No tenderness, No hepatospenomegaly Neuro: Normal gait, Normal speech, Strength at 5/5 X4 ext, Normal tone, S ensation intact, Cranial nerves 3-12 NL, Reflexes 2+ Psych/Mental Status: Mental status NL, Mood NL Medications Current Medications Medications Dose Ordered Sig/Jim Route Start Time Stop Time Status Last Admin Dose Admin Sodium Chloride 10 ml Q8HR IV 05/15/25 06:00 05/15/25 14:00 10 ML Acetaminophen/ Hydrocodone Bitart 1 tab Q4HP PRN PO 05/14/25 23:15 05/15/25 02:59 1 TAB Ondansetron HCl 4 mg Q4HP PRN IV 05/14/25 23:15 05/14/25 23:45 4 MG Hydromorphone HCl 0.5 mg Q4HPRN PRN IV 05/14/25 23:15 05/14/25 23:46 0.5 MG Tamsulosin HCl 0.4 mg QPM PO 05/15/25 18:00 Ceftriaxone Sodium 50 ml @ 100 mls/hr DAILY@09 IV 05/15/25 09:00 05/15/25 10:03 100 MLS/HR Laboratory Results Laboratory Tests 05/15/25 02:55 Chemistry Test 05/14/25 16:15 05/15/25 02:55 Albumin 4.7 g/dL (3.2-4.8) 4.2 g/dL (3.2-4.8) Calcium Level 9.5 mg/dL (8.7-10.4) 9.0 mg/dL (8.7-10.4) Total Protein 7.9 g/dL (5.7-8.2) 7.4 g/dL (5.7-8.2) Lipid panel Test 05/14/25 16:15 05/15/25 02:55 Lipase 58 U/L (12-53) H 42 U/L (12-53) LFT Test 05/14/25 16:15 05/15/25 02:55 Alanine Aminotransferase (ALT) 33 U/L (7-40) 24 U/L (7-40) Alkaline Phosphatase 143 U/L (46-116) H 122 U/L (46-116) H Aspartate Amino Transferase (AST) 28 U/L (13-40) 23 U/L (13-40) Total Bilirubin 0.6 mg/dL (0.2-1.0) 0.6 mg/dL (0.2-1.0) Urinalysis Test 05/14/25 15:56 Urine Color Colorless (Yellow) Urine Clarity Clear (Clear) Urine pH 5.5 (5.0-9.0) Urine Specific [place] 1.008 (1.001-1.035) Urine Protein Negative (Negative) Urine Ketones Negative (Negative) Urine Blood 1+ /uL (Negative) H Urine Nitrite Negative (Negative) Urine Bilirubin Negative (Negative) Urine Urobilinogen Normal mg/dL (Negative) Urine Leukocyte Esterase Negative /uL (Negative) Urine RBC 1 /hpf (0 - 3) Urine Microscopic WBC < 1 /HPF (0-3) Urine Squamous Epithelial Cells None seen /hpf (<5) Urine Bacteria None seen /hpf (None Seen) Urine Glucose Normal mg/dL (Normal) Labs and/or images reviewed: Labs reviewed by me, Image(s) reviewed by me Assessment/Plan Assessment/Plan left renal colic/left hydronephrosis-pain control/uro on board- per us 4.8 mm ambulatory status Plan discussed with: Patient, Other Date of Service: May 15, 2025 Billing Provider: CANDICE CHIN MD Common Visit Codes: [id number] INP/OBS CARE(LOW) CANDICE CHIN MD May 15, 2025 15:58
--- NOTE | 2025-05-15 15:59 | DVHPN2 ---
Progress Note - Dictate Date Seen: May 15, 2025 Has the PT tested + for MRSA If YES, has PT been informed?: No Medical Necessity Reason Pt with a Central, PICC or Fol: No Medical Necessity Reason Left flank pain Nonobstructing 5 mm left proximal ureteral stone Azotemia, mild vital signs Vital Sign Date Time Temp Pulse Resp B/P (MAP) Pulse Ox O2 Delivery O2 Flow Rate FiO2 05/15/25 12:42 98.1 81 18 135/67 (89) 97 98.1 05/15/25 00:43 Room Air* 0 21 Total Intake and Output 05/14/25 05/14/25 05/15/25 15:00 23:00 07:00 Intake Total 50 ml 500 ml Balance 50 ml 500 ml medications Current Medications Medications Dose Ordered Sig/Jim Route Start Time Stop Time Status Last Admin Dose Admin Sodium Chloride 10 ml Q8HR IV 05/15/25 06:00 05/15/25 14:00 10 ML Acetaminophen/ Hydrocodone Bitart 1 tab Q4HP PRN PO 05/14/25 23:15 05/15/25 02:59 1 TAB Ondansetron HCl 4 mg Q4HP PRN IV 05/14/25 23:15 05/14/25 23:45 4 MG Hydromorphone HCl 0.5 mg Q4HPRN PRN IV 05/14/25 23:15 05/14/25 23:46 0.5 MG Tamsulosin HCl 0.4 mg QPM PO 05/15/25 18:00 Ceftriaxone Sodium 50 ml @ 100 mls/hr DAILY@09 IV 05/15/25 09:00 05/15/25 10:03 100 MLS/HR objective PATIENT: EMERY MURRAYOACCT: [id number] UNIT: [id number] : 1965 LOC: OVERFLOW ROOM / BED: [address] [place] [address] AGE / SEX: 59 / M ADM STATUS: ADM IN SERVICE 1128 ORDERING PHYSICIAN: TAMIKA SORIA MD PROCEDURE(s): BLDR - BLADDER REASON: look for ureteral jetting ORDER NUMBER(s): [id number], ACCESSION NUMBER(s): [id number] INDICATION: look for ureteral jetting TECHNIQUE: Multiple real-time grayscale transabdominal sonographic images along with color and duplex Doppler of the uterus and ovaries were obtained. COMPARISON: None FINDINGS: Bladder contains 284.34 mL. Bladder wall measures 1.47 mm Right and left ureteral jets are visualized. IMPRESSION: 1. Bilateral ureteral jets are visualized. 2. Bladder volume prevoid 284 mL. 3. Postvoid bladder volume not obtained. 4. Wall of the bladder measures 1.5 mm laboratory and microbiology Laboratory Tests 05/15/25 02:55 Test 05/15/25 02:55 Range/Units Serum Glucose 126 H 74-106 mg/dL Assessment/Plan 4.7 mm proximal left ureteral stone with mild hydronephrosis Elevated creatinine 1.63 Bladder US shows bilateral ureteral jets. Continue expulsive measures If fail conservative management, will plan for left ESWL, possible stent placement on Saturday05/17/25. NPO after midnight Saturday Plan discussed with: Patient, Other TAMIKA SORIA MD May 15, 2025 15:59
[2025-05-15 16:46] VITALS: BP 147/75; PULSE 96; RESP 20; TEMP 97.8; O2SAT 97
[2025-05-15] MEDS: TAMSULOSIN HYDROCHLORIDE 0.4 MG CAP PO SCH (17:44)
[2025-05-15 21:00] VITALS: BP 145/79; PULSE 98; RESP 17; TEMP 97.7; O2SAT 100
[2025-05-16 01:00] VITALS: BP 146/78; PULSE 77; RESP 19; TEMP 98; O2SAT 96
[2025-05-16 05:00] VITALS: BP 131/71; PULSE 81; RESP 18; TEMP 97.7; O2SAT 98
[2025-05-16 05:34] LABS: Potassium 4.7 mmol/L (3.5-5.1); Sodium 138 mmol/L (136-145)
[2025-05-16 05:35] LABS: Anion Gap 1 (5-15); Carbon Dioxide 29 mmol/L (20-31)
[2025-05-16 05:36] LABS: Calcium 9.1 mg/dL (8.7-10.4)
[2025-05-16 05:40] LABS: BUN/Creatinine Ratio 12.5 (10.0-20.0); Blood Urea Nitrogen 22 mg/dL (9-23)
[2025-05-16 06:18] LABS: Chloride 108 mmol/L (98-107); Glucose 113 mg/dL (74-106)
[2025-05-16 09:00] VITALS: BP 163/85; PULSE 84; RESP 18; TEMP 98.2; O2SAT 96
[2025-05-16] MEDS: LACTULOSE 20Gm/30ML SOLN PO ONE (12:05)
--- NOTE | 2025-05-16 12:44 | DVHPN2 ---
Subjective pAIN IS BETTER now had mild llq pain this morning-took norco Changes from previous H/P or p: No Changes Objective Vitals Vital Signs Date Time Temp Pulse Resp B/P (MAP) Pulse Ox O2 Delivery O2 Flow Rate FiO2 05/16/25 12:12 Room Air* 0 21 05/16/25 09:00 98.2 84 18 163/85 (111) 96 98.2 Intake/Output Intake and Output 05/16/25 07:00 Intake Total 3000 ml Balance 3000 ml Intake Oral 3000 ml # Voids 5 General Appearance: Alert, Oriented X3, Cooperative, No acute distress Lungs: Clear to auscultation Cardiovascular: Regular rate, Normal S1, Normal S2 Abdomen: Normal bowel sounds, Soft, No tenderness, No hepatospenomegaly Neuro: Normal gait, Normal speech, Strength at 5/5 X4 ext, Normal tone, S ensation intact, Cranial nerves 3-12 NL, Reflexes 2+ Psych/Mental Status: Mental status NL, Mood NL Medications Current Medications Medications Dose Ordered Sig/Jim Route Start Time Stop Time Status Last Admin Dose Admin Sodium Chloride 10 ml Q8HR IV 05/15/25 06:00 05/16/25 06:25 10 ML Acetaminophen/ Hydrocodone Bitart 1 tab Q4HP PRN PO 05/14/25 23:15 05/16/25 08:44 1 TAB Ondansetron HCl 4 mg Q4HP PRN IV 05/14/25 23:15 05/16/25 08:23 4 MG Hydromorphone HCl 0.5 mg Q4HPRN PRN IV 05/14/25 23:15 05/14/25 23:46 0.5 MG Tamsulosin HCl 0.4 mg QPM PO 05/15/25 18:00 05/15/25 17:44 0.4 MG Ceftriaxone Sodium 50 ml @ 100 mls/hr DAILY@09 IV 05/15/25 09:00 05/16/25 08:23 100 MLS/HR Docusate Sodium 100 mg BID PO 05/16/25 22:00 Laboratory Results Laboratory Tests 05/15/25 02:55 05/16/25 04:30 Chemistry Test 05/16/25 04:30 Calcium Level 9.1 mg/dL (8.7-10.4) Urinalysis Test 05/14/25 15:56 Urine Color Colorless (Yellow) Urine Clarity Clear (Clear) Urine pH 5.5 (5.0-9.0) Urine Specific [employer] 1.008 (1.001-1.035) Urine Protein Negative (Negative) Urine Ketones Negative (Negative) Urine Blood 1+ /uL (Negative) H Urine Nitrite Negative (Negative) Urine Bilirubin Negative (Negative) Urine Urobilinogen Normal mg/dL (Negative) Urine Leukocyte Esterase Negative /uL (Negative) Urine RBC 1 /hpf (0 - 3) Urine Microscopic WBC < 1 /HPF (0-3) Urine Squamous Epithelial Cells None seen /hpf (<5) Urine Bacteria None seen /hpf (None Seen) Urine Glucose Normal mg/dL (Normal) Labs and/or images reviewed: Labs reviewed by me, Image(s) reviewed by me Assessment/Plan Assessment/Plan left renal colic/left hydronephrosis-pain control/uro on board- per us 4.8 mm - per uro if pain not resolved completely possible lithotripsy in am diverticulosis constipation treat ambulatory status Plan discussed with: Other My Orders Orders - CANDICE CHIN MD Procedure Category Date Status Time Docusate Sodium PHA 05/16/25 In Process Capsule (Colace 22:00 Date of Service: May 16, 2025 Billing Provider: CANDICE CHIN MD Common Visit Codes: [id number] INP/OBS CARE(MOD) CANDICE CHIN MD May 16, 2025 12:44
[2025-05-16 13:00] VITALS: BP 155/80; PULSE 81; RESP 16; TEMP 97.5; O2SAT 99
[2025-05-16] MEDS: DOCUSATE SOD 100 MG CAP PO SCH (15:01)
[2025-05-16 17:00] VITALS: BP 153/85; PULSE 82; RESP 20; TEMP 98.3; O2SAT 98
[2025-05-16 21:00] VITALS: BP 150/86; PULSE 92; RESP 17; TEMP 97.9; O2SAT 96
[2025-05-16] MEDS ORDERED: DOCUSATE SOD 100 MG CAP PO SCH (22:00)
[2025-05-17] VITALS (8 sets, daily range): BP systolic 133–155; BP diastolic 79–95; PULSE 73–91; RESP 16–18; TEMP 98–98.8; O2SAT 96–98
--- NOTE | 2025-05-17 05:28 | ECG ---
[facility] Test Date: 2025-05-17 Test Time: 04:58:51 Pat Name: RAIZA MURRAY Department: Room: 0284 A Gender: M Production Support Manager: DAMIAN : 1965 Requested By: CANDICE CHIN Order Number: [id number] Reading MD: Louie Pal Measurements Intervals [place] Rate: 77 P: 2 NE: 172 QRS: -24 QRSD: 94 T: -14 QT: 381 QTc: 432 Interpretive Statements Sinus rhythm Abnormal R-wave progression, early transition Left ventricular hypertrophy Borderline T abnormalities, inferior leads Electronically Signed On 05-17-2025 11:12:45 PST by Louie Pal Please click the below link to view image of tracing.
[2025-05-17 08:32] LABS: Potassium 4.6 mmol/L (3.5-5.1); Sodium 140 mmol/L (136-145)
[2025-05-17 08:33] LABS: Carbon Dioxide 28 mmol/L (20-31)
[2025-05-17 08:34] LABS: Calcium 9.2 mg/dL (8.7-10.4)
[2025-05-17 08:38] LABS: BUN/Creatinine Ratio 12.6 (10.0-20.0); Blood Urea Nitrogen 19 mg/dL (9-23)
[2025-05-17 08:39] LABS: Glucose 119 mg/dL (74-106)
[2025-05-17 08:55] LABS: Anion Gap 10 (5-15); Chloride 102 mmol/L (98-107)
[2025-05-17 09:00] LABS: INR 1.03 (0.9-1.15); Partial Thromboplastin Time 26.2 SEC (24.5-34.5); Prothrombin Time 10.9 sec (9.3-11.8)
--- NOTE | 2025-05-17 12:48 | DVHPN2 ---
Subjective no pain today Reviewed: H&P Changes from previous H/P or p: No Changes Objective Vitals Vital Signs Date Time Temp Pulse Resp B/P (MAP) Pulse Ox O2 Delivery O2 Flow Rate FiO2 05/17/25 09:00 98.2 73 18 142/92 (109) 98 98.2 05/17/25 08:00 Room Air* 0 21 Intake/Output Intake and Output 05/17/25 07:00 Intake Total 2770 ml Balance 2770 ml Intake Oral 2720 ml IV Total 50 ml # Voids 10 # Bowel Movements 1 General Appearance: Alert, Oriented X3, Cooperative, No acute distress Lungs: Clear to auscultation Cardiovascular: Regular rate, Normal S1, Normal S2 Abdomen: Normal bowel sounds, Soft, No tenderness, No hepatospenomegaly Neuro: Normal gait, Normal speech, Strength at 5/5 X4 ext, Normal tone, S ensation intact, Cranial nerves 3-12 NL, Reflexes 2+ Psych/Mental Status: Mental status NL, Mood NL Medications Current Medications Medications Dose Ordered Sig/Jim Route Start Time Stop Time Status Last Admin Dose Admin Sodium Chloride 10 ml Q8HR IV 05/15/25 06:00 05/17/25 06:20 10 ML Acetaminophen/ Hydrocodone Bitart 1 tab Q4HP PRN PO 05/14/25 23:15 05/16/25 08:44 1 TAB Ondansetron HCl 4 mg Q4HP PRN IV 05/14/25 23:15 05/16/25 08:23 4 MG Hydromorphone HCl 0.5 mg Q4HPRN PRN IV 05/14/25 23:15 05/14/25 23:46 0.5 MG Tamsulosin HCl 0.4 mg QPM PO 05/15/25 18:00 05/16/25 18:00 0.4 MG Ceftriaxone Sodium 50 ml @ 100 mls/hr DAILY@09 IV 05/15/25 09:00 05/17/25 09:53 100 MLS/HR Docusate Sodium 100 mg BID PO 05/16/25 15:00 05/17/25 09:48 100 MG Laboratory Results Laboratory Tests 05/15/25 02:55 05/17/25 07:53 Chemistry Test 05/17/25 07:53 Calcium Level 9.2 mg/dL (8.7-10.4) Coagulation Test 05/17/25 07:53 Prothrombin Time 10.9 sec (9.3-11.8) Prothrombin Time INR 1.03 (0.9-1.15) Activated Partial Thromboplast Time 26.2 SEC (24.5-34.5) Urinalysis Test 05/14/25 15:56 Urine Color Colorless (Yellow) Urine Clarity Clear (Clear) Urine pH 5.5 (5.0-9.0) Urine Specific [place] 1.008 (1.001-1.035) Urine Protein Negative (Negative) Urine Ketones Negative (Negative) Urine Blood 1+ /uL (Negative) H Urine Nitrite Negative (Negative) Urine Bilirubin Negative (Negative) Urine Urobilinogen Normal mg/dL (Negative) Urine Leukocyte Esterase Negative /uL (Negative) Urine RBC 1 /hpf (0 - 3) Urine Microscopic WBC < 1 /HPF (0-3) Urine Squamous Epithelial Cells None seen /hpf (<5) Urine Bacteria None seen /hpf (None Seen) Urine Glucose Normal mg/dL (Normal) Assessment/Plan Assessment/Plan left renal colic/left hydronephrosis- pain control/uro on board- per us 4.8 mm lithotripsy today diverticulosis constipation treat ambulatory status Plan discussed with: Patient Date of Service: May 17, 2025 Billing Provider: ANISH PACHECO MD Common Visit Codes: [id number] INP/OBS CARE(HIGH) ANISH PACHECO MD May 17, 2025 12:48
--- NOTE | 2025-05-17 13:15 | DVHPN2 ---
Progress Note - Dictate Date Seen: May 17, 2025 Has the PT tested + for MRSA If YES, has PT been informed?: No Medical Necessity Reason Pt with a Central, PICC or Fol: No Medical Necessity Reason Patient is pain free. He may have passed the stone. Subjective No pain will cancel surgery. vital signs Vital Sign Date Time Temp Pulse Resp B/P (MAP) Pulse Ox O2 Delivery O2 Flow Rate FiO2 05/17/25 12:35 98.0 79 18 145/95 (112) 97 98.0 05/17/25 08:00 Room Air* 0 21 Total Intake and Output 05/16/25 05/16/25 05/17/25 15:00 23:00 07:00 Intake Total 50 ml 1520 ml 1200 ml Balance 50 ml 1520 ml 1200 ml medications Current Medications Medications Dose Ordered Sig/Jim Route Start Time Stop Time Status Last Admin Dose Admin Sodium Chloride 10 ml Q8HR IV 05/15/25 06:00 05/17/25 06:20 10 ML Acetaminophen/ Hydrocodone Bitart 1 tab Q4HP PRN PO 05/14/25 23:15 05/16/25 08:44 1 TAB Ondansetron HCl 4 mg Q4HP PRN IV 05/14/25 23:15 05/16/25 08:23 4 MG Hydromorphone HCl 0.5 mg Q4HPRN PRN IV 05/14/25 23:15 05/14/25 23:46 0.5 MG Tamsulosin HCl 0.4 mg QPM PO 05/15/25 18:00 05/16/25 18:00 0.4 MG Ceftriaxone Sodium 50 ml @ 100 mls/hr DAILY@09 IV 05/15/25 09:00 05/17/25 09:53 100 MLS/HR Docusate Sodium 100 mg BID PO 05/16/25 15:00 05/17/25 09:48 100 MG objective PATIENT: EMERY MURRAYOACCT: [id number] UNIT: [id number] : 1965 [facility] AGE / SEX: 59 / M ADM STATUS: ADM IN SERVICE 1128 ORDERING PHYSICIAN: TAMIKA SORIA MD PROCEDURE(s): BLDR - BLADDER REASON: look for ureteral jetting ORDER NUMBER(s): [id number], ACCESSION NUMBER(s): [id number] INDICATION: look for ureteral jetting TECHNIQUE: Multiple real-time grayscale transabdominal sonographic images along with color and duplex Doppler of the uterus and ovaries were obtained. COMPARISON: None FINDINGS: Bladder contains 284.34 mL. Bladder wall measures 1.47 mm Right and left ureteral jets are visualized. IMPRESSION: 1. Bilateral ureteral jets are visualized. 2. Bladder volume prevoid 284 mL. 3. Postvoid bladder volume not obtained. 4. Wall of the bladder measures 1.5 mm laboratory and microbiology Laboratory Tests 05/17/25 07:53 05/15/25 02:55 Test 05/17/25 07:53 Range/Units Serum Glucose 119 H 74-106 mg/dL Assessment/Plan 4.7 mm proximal left ureteral stone with mild hydronephrosis Elevated creatinine 1.63 Bladder US shows bilateral ureteral jets. Patient denies any pain and he may have passed the stone. We will cancel surgery and follow up as outpatient Serum creatinine has improved as well. Plan discussed with: Patient, Other TAMIKA SORIA MD May 17, 2025 13:15
--- NOTE | 2025-05-17 14:12 | DVH ---
Date: 05/17/2025 01:36 PM Examination: XY KUB ABDOMEN SINGLE VIEW History: pain Comparison: None TECHNIQUE: Frontal views of the abdomen was obtained. FINDINGS: Bowel gas pattern is unremarkable. The lung bases are unremarkable. No acute osseous abnormality identified. IMPRESSION: Nonobstructive bowel gas pattern. Large stool burden
[2025-05-17] MEDS: CIPROFLOXACIN 400MG/200ML 200 ML IV ONE (14:40)
--- NOTE | 2025-05-17 15:19 | DVH ---
CLINICAL HISTORY: SURGERY TECHNIQUE: Complete ultrasound exam of the kidneys and bladder was performed. COMPARISON: XY KUB ABDOMEN SINGLE VIEW on DOS: 05/17/25, US BLADDER on DOS: 05/15/25 FINDINGS: The right kidney has normal echogenicity and measures 9.7 cm. There is and over measured 7 mm mid right renal echogenic focus, compatible with stone, better seen on recent CT, were .it actually measures2 mmThere is no hydronephrosis. The left kidney has normal echogenicity and measures 11.3 cm. There is no focal parenchymal abnormality or evidence for stone. There is mild hydronephrosis. The bladder is grossly unremarkable. IMPRESSION: Mild left hydronephrosis. Punctate nonobstructing right renal calculus.
[2025-05-17] MEDS ORDERED: MIDAZOLAM HCL 2MG/2ML 2ml VIAL (1mg/ml) ONE (15:30)
[2025-05-17] MEDS ORDERED: fentaNYL CITRATE 100 MCG/2 ML VL ONE (15:30)
[2025-05-17] MEDS ORDERED: MEPERIDINE HCL (25 MG/ML) 1ML VIAL ONE (15:30)
[2025-05-17] MEDS ORDERED: LIDOCAINE 2% (LOCAL ANESTH.) PF 5ml SDV ONE (15:31)
[2025-05-17] MEDS ORDERED: KETOROLAC TROMETH 30 MG/ML 1ML VIAL ONE (15:31)
[2025-05-17] MEDS ORDERED: PROPOFOL 10 MG/ML 20 ML IV ONE (15:31)
[2025-05-17] MEDS ORDERED: ONDANSETRON HCL 4 MG/2 ML VIAL ONE (15:31)
[2025-05-17] MEDS ORDERED: GLYCOPYRROLATE 0.2 MG/ML 1ML VIAL ONE (15:31)
--- NOTE | 2025-05-17 17:01 | DVH ---
Exam: CT CT AB PEL WO CON-NO ORAL OR IV History: Left ureteral stone Comparison Study: CT CT AB PEL WO CON-NO ORAL OR IV on DOS: 05/14/25 TECHNIQUE: Multidetector CT of the abdomen AND PELVIS without IV contrast. Axial, coronal and sagittal multiplanar reformats were obtained from the axial data set by the technologist. Radiation Dose Information: CT Dose: CTDI volume is mGy. Dose-length product is mGy*cm FINDINGS: Bibasilar atelectasis. Partially visualized heart is unremarkable. Trace pericardial effusion. Mild hepatic steatosis. Otherwise, liver, spleen, gallbladder, pancreas and adrenal glands unremarkable. A splenule is noted adjacent to the spleen. [id number] asymmetric left sided perirenal fat stranding. 4 x 3 mm obstructing calculus within the left proximal ureter causing mild left-sided hydronephrosis. Punctate nonobstructing right renal calculus. Otherwise, right kidney is unremarkable. Urinary bladder is unremarkable. Prostate measures 3.4 x 4.2 x 4.7 cm. Small hiatal hernia. Stomach is unremarkable. Small bowel loops unremarkable. Appendix is unremarkable. Small to moderate amount of fecal material within the colon. Colonic diverticulosis without diverticulitis. No evidence of intraperitoneal free air or free fluid. No evidence of aortic aneurysm. No significant lymphadenopathy. Tiny fat containing umbilical hernia. The soft tissues unremarkable. No acute osseous abnormalities. IMPRESSION: 4 x 3 mm obstructing calculus within the right proximal ureter causing mild left-sided hydronephrosis and asymmetric left-sided perinephric fat stranding.
[2025-05-18] VITALS (10 sets, daily range): BP systolic 130–153; BP diastolic 79–89; PULSE 70–97; RESP 16–19; TEMP 97.4–98.8; O2SAT 95–98
[2025-05-18] MEDS ORDERED: fentaNYL CITRATE 100 MCG/2 ML VL ONE (13:36)
[2025-05-18] MEDS ORDERED: MEPERIDINE HCL (25 MG/ML) 1ML VIAL ONE (13:36)
[2025-05-18] MEDS ORDERED: MIDAZOLAM HCL 2MG/2ML 2ml VIAL (1mg/ml) ONE (13:37)
[2025-05-18] MEDS: IOHEXOL 300 MG/ML 100ML BOTTLE IJ ONE (14:02)
[2025-05-18] MEDS ORDERED: PROPOFOL 10 MG/ML 20 ML IV ONE (14:03)
--- NOTE | 2025-05-18 14:35 | DVHNC2 ---
Procedure - OPERATIVE REPORT Pre-op. Diagnosis: Ureteral Stone - LEFT Hydronephrosis - LEFT Flank Pain - LEFT Post-op. Diagnosis: Same as pre-op diagnosis Operation: Extracorporeal Shockwave Lithotripsy - LEFT Cystoscopy, Ureteral stent placement - LEFT Anesthesia: General Indications: Informed Consent: Options were discussed. Treatments can include conservative therapy, Extra-corporeal shockwave therapy (ESWL), Ureteroscopy with laser lithotripsy vs extraction, PCNL (percutaneous nephrolithotomy); with or without the use of Stents or retrograde pyelography. Corresponding advantages and disadvantages were also discussed. Questions were addressed. Patient wishes to proceed with left ESWL and possible cystoscopy with left ureteral stent placement. Risks and benefits of the surgery were reviewed with patient which include but are not limited to infection, bleeding, urosepsis, renal hemorrhage/hematoma formation, ureteral perforation, ureteral stricture formation, need for further surgery if stone does not break, ureteral obstruction from stone fragments, cardiac arrthymia and risks of anesthesia. Despite these risks, patient wishes to proceed with the surgery. Patient fully understood and signed the consent. Details of Procedure: Under satisfactory anesthesia, the patient was positioned on the lithotripsy table. Using fluoroscopy the left ureteral stone was localized. Starting at low energy levels, shockwave treatment was commenced. The energy level was gradually increased and stone was fragmented. Once the treatment was completed, patient was then positioned in dorsal lithotomy position, prep and draped under standard fashion and cystoscopy with a 22Fr rigid cystoscope was performed. The left ureteral orifice was cannulated with a sensor tip guidewire and advanced into the left renal pelvis under fluroscopy. A [address] left Ureteral stent was then placed over the wire under Fluoroscopic and cystoscopic guidance. A good curl was seen in the kidney under fluorscopy and a good curl was seen in the bladder under direct visualization. The bladder was emptied and the cystoscope was taken out. General anesthesia was reversed, the patient was then taken off the lithotripsy table and sent to re covery room in stable condition. Specimens: None Complications: None Findings: Stone Laterality: Left Stone Location: Ureteral 4 mm proximal/mid Shocks Delivered: 2000 Max Power settin Fragmentation Quality: Well Ureteral stent size & length:5x24 PL left ureteral stent Notes: F/U in 2 weeks for stent removal TAMIKA SORIA MD May 18, 2025 14:35
[2025-05-18] MEDS: CIPROFLOXACIN 400MG/200ML 200 ML IV ONE (14:40)
--- NOTE | 2025-05-18 18:08 | DVHPN2 ---
Subjective no pain today Reviewed: H&P Changes from previous H/P or p: No Changes Objective Vitals Vital Signs Date Time Temp Pulse Resp B/P (MAP) Pulse Ox O2 Delivery O2 Flow Rate FiO2 05/18/25 17:00 97.4 79 18 153/89 (110) 98 97.4 05/18/25 08:00 Room Air* 0 21 Intake/Output Intake and Output 05/18/25 05:00 Intake Total 600 ml Balance 600 ml Intake Oral 600 ml # Voids 9 # Bowel Movements 1 General Appearance: Alert, Oriented X3, Cooperative, No acute distress Lungs: Clear to auscultation Cardiovascular: Regular rate, Normal S1, Normal S2 Abdomen: Normal bowel sounds, Soft, No tenderness, No hepatospenomegaly Neuro: Normal gait, Normal speech, Strength at 5/5 X4 ext, Normal tone, S ensation intact, Cranial nerves 3-12 NL, Reflexes 2+ Psych/Mental Status: Mental status NL, Mood NL Medications Current Medications Medications Dose Ordered Sig/Jim Route Start Time Stop Time Status Last Admin Dose Admin Sodium Chloride 10 ml Q8HR IV 05/15/25 06:00 05/18/25 14:00 10 ML Acetaminophen/ Hydrocodone Bitart 1 tab Q4HP PRN PO 05/14/25 23:15 05/18/25 17:49 1 TAB Ondansetron HCl 4 mg Q4HP PRN IV 05/14/25 23:15 05/16/25 08:23 4 MG Hydromorphone HCl 0.5 mg Q4HPRN PRN IV 05/14/25 23:15 05/18/25 10:11 0.5 MG Tamsulosin HCl 0.4 mg QPM PO 05/15/25 18:00 05/18/25 17:54 0.4 MG Ceftriaxone Sodium 50 ml @ 100 mls/hr DAILY@09 IV 05/15/25 09:00 05/18/25 08:47 100 MLS/HR Docusate Sodium 100 mg BID PO 05/16/25 15:00 05/17/25 21:39 100 MG Laboratory Results Laboratory Tests 05/15/25 02:55 05/17/25 07:53 Urinalysis Test 05/14/25 15:56 Urine Color Colorless (Yellow) Urine Clarity Clear (Clear) Urine pH 5.5 (5.0-9.0) Urine Specific [place] 1.008 (1.001-1.035) Urine Protein Negative (Negative) Urine Ketones Negative (Negative) Urine Blood 1+ /uL (Negative) H Urine Nitrite Negative (Negative) Urine Bilirubin Negative (Negative) Urine Urobilinogen Normal mg/dL (Negative) Urine Leukocyte Esterase Negative /uL (Negative) Urine RBC 1 /hpf (0 - 3) Urine Microscopic WBC < 1 /HPF (0-3) Urine Squamous Epithelial Cells None seen /hpf (<5) Urine Bacteria None seen /hpf (None Seen) Urine Glucose Normal mg/dL (Normal) Assessment/Plan Assessment/Plan left renal colic/left hydronephrosis- pain control/uro on board- per us 4.8 mm lithotripsy today diverticulosis constipation treat ambulatory status Plan discussed with: Patient My Orders Orders - ANISH PACHECO MD Procedure Category Date Status Time Discharge DISCHARGE 05/18/25 Transmitted 10:21 Date of Service: May 18, 2025 Billing Provider: ANISH PACHECO MD Common Visit Codes: [id number] INP/OBS CARE(HIGH) ANISH PACHECO MD May 18, 2025 18:08
[2025-05-19 01:00] VITALS: BP 128/81; PULSE 93; RESP 19; TEMP 98.1; O2SAT 96
[2025-05-19 05:00] VITALS: BP 136/87; PULSE 76; RESP 18; TEMP 98.1; O2SAT 95
[2025-05-19 08:20] VITALS: PULSE 79; RESP 17; O2SAT 96
[2025-05-19 09:00] VITALS: BP 160/95; PULSE 79; RESP 17; TEMP 97.5; O2SAT 96
[2025-05-19 10:35] LABS: Chloride 102 mmol/L (98-107); Potassium 4.0 mmol/L (3.5-5.1); Sodium 138 mmol/L (136-145)
[2025-05-19 10:36] LABS: Anion Gap 12 (5-15); Carbon Dioxide 24 mmol/L (20-31)
[2025-05-19 10:37] LABS: Calcium 9.1 mg/dL (8.7-10.4)
[2025-05-19 10:42] LABS: BUN/Creatinine Ratio 12.8 (10.0-20.0); Blood Urea Nitrogen 16 mg/dL (9-23); Glucose 171 mg/dL (74-106)
[2025-05-19 13:00] VITALS: BP 155/91; PULSE 70; RESP 17; TEMP 97; O2SAT 99
[2025-05-19 13:25] VITALS: TEMP 36.4
[2025-05-19] MEDS ORDERED: AML5T PO (14:02)
--- NOTE | 2025-05-19 14:03 | DVHDS2 ---
Discharge Summary Date of Admission May 14, 2025 at 23:13 Date of Discharge: May 19, 2025 Labs/Diagnostic Data: Laboratory Results Test 05/19/25 09:56 05/17/25 07:53 05/15/25 02:55 05/14/25 15:56 Sodium Level 138 mmol/L (136-145) Potassium Level 4.0 mmol/L (3.5-5.1) Chloride Level 102 mmol/L (98-107) Carbon Dioxide Level 24 mmol/L (20-31) Anion Gap 12 (5-15) Blood Urea Nitrogen 16 mg/dL (9-23) Creatinine 1.25 mg/dL (0.700-1.30) Glomerular Filtration Rate Calc 66 mL/min (>90) BUN/Creatinine Ratio 12.8 (10.0-20.0) Serum Glucose 171 mg/dL (74-106) Calcium Level 9.1 mg/dL (8.7-10.4) Prothrombin Time 10.9 sec (9.3-11.8) Prothrombin Time INR 1.03 (0.9-1.15) Activated Partial Thromboplast Time 26.2 SEC (24.5-34.5) White Blood Count 12.4 10^3/uL (4.4-10.8) Red Blood Count 4.61 10^6/uL (4.5-5.90) Hemoglobin 12.7 g/dL (13.5-17.5) Hematocrit 38.5 % (41.0-53.0) Mean Corpuscular Volume 83.4 fL (80.0-100.0) Mean Corpuscular Hemoglobin 27.6 pg (28.0-32.0) Mean Corpuscular Hemoglobin Concent 33.2 g/dL (32.0-36.0) Red Cell Distribution Width 13.2 % (11.8-14.3) Platelet Count 235 10^3/uL (140-450) Mean Platelet Volume 7.7 fL (6.9-10.8) Neutrophils (%) (Auto) 79.3 % (37.0-80.0) Lymphocytes (%) (Auto) 10.4 % (10.0-50.0) Monocytes (%) (Auto) 9.3 % (0.0-12.0) Eosinophils (%) (Auto) 0.4 % (0.0-7.0) Basophils (%) (Auto) 0.6 % (0.0-2.0) Neutrophils # (Auto) 9.9 10 ^3/uL (1.6-8.6) Lymphocytes # (Auto) 1.3 10 ^3/uL (0.4-5.4) Monocytes # (Auto) 1.2 10 ^3/uL (0-1.3) Eosinophils # (Auto) 0.1 10 ^3/uL (0-0.8) Basophils # (Auto) 0.1 10 ^3/uL (0-0.2) Nucleated Red Blood Cells 0.0 % Total Bilirubin 0.6 mg/dL (0.2-1.0) Aspartate Amino Transferase (AST) 23 U/L (13-40) Alanine Aminotransferase (ALT) 24 U/L (7-40) Alkaline Phosphatase 122 U/L (46-116) Total Protein 7.4 g/dL (5.7-8.2) Albumin 4.2 g/dL (3.2-4.8) Lipase 42 U/L (12-53) Urine Color Colorless (Yellow) Urine Clarity Clear (Clear) Urine pH 5.5 (5.0-9.0) Urine Specific [place] 1.008 (1.001-1.035) Urine Protein Negative (Negative) Urine Ketones Negative (Negative) Urine Blood 1+ /uL (Negative) Urine Nitrite Negative (Negative) Urine Bilirubin Negative (Negative) Urine Urobilinogen Normal mg/dL (Negative) Urine Leukocyte Esterase Negative /uL (Negative) Urine RBC 1 /hpf (0 - 3) Urine Microscopic WBC < 1 /HPF (0-3) Urine Squamous Epithelial Cells None seen /hpf (<5) Urine Bacteria None seen /hpf (None Seen) Urine Glucose Normal mg/dL (Normal) Other Laboratory Tests 05/19/25 09:56 05/15/25 02:55 Brief Hx & Hospital Course: 59-year-old male with no significant past medical history, presented to [facility] ED with complaint of left-sided flank pain. Patient reports the pain radiating to the left abdominal area, which began three days ago. Patient describes the pain as sharp and constant. He currently rates it as 7/10 on the pain scale, with episodes reaching 10/10 at its worst. He denies any history of kidney stones, nausea, vomiting, fever, chills, hematuria, or dysuria. Patient reports that he checks his blood pressure and blood glucose levels daily at home, and both have remained within normal limits. On evaluation in the ED, patient is afebrile, blood pressure is 156/97 mmHg. Initial labs show WBC 11.2, creatinine 1.64, serum glucose 107, creatinine 1.64, ALP 143, and lipase 58. Abdominal CT shows obstructing 4.7 mm calculus in the proximal left ureter causing mild left hydroureteronephrosis and mild left urothelial thickening. The patient was started on IV antibiotics and IV fluids. Patient is admitted for further evaluation and management. Had lithotripsy and creatinine got better Condition at Discharge: Good Final Diagnosis/Problems List Acute kidney injury due to obstructive uropathy kidney stones Discharge Disposition: Home Discharge Instruct/Medications Diet: Regular Activity: No Restrictions, As Tolerated Follow Up/Referral: urology in [address] ortez Medications: none Scheduled Amlodipine Besylate (Norvasc Tablet), 1 TAB PO DAILY Discharge Statement: "Patient was advised to return to the ER or call 911 if any headaches, dizziness, shortness of breath, chest pain, abdominal pain, bleeding, fevers, or worsening of medical condition. Patient was counseled about treatment plan, medications, possible side effects, patientverbalized understanding. All questions were answered to the best of my ability. This discharge took greater then 30 minutes in planning, reviewing documentation, counseling the patient, and discussing with other team members." ASSESSMENT ASSESSMENT Assessment Acute kidney injury due to obstructive uropathy kidney stones Date of Service: May 19, 2025 Billing Provider: ANISH PACHECO MD Common Visit Codes: [id number] DISCH DAY >30min ANISH PACHECO MD May 19, 2025 14:03
== END 2025-05-19 14:25 | disposition home or self-care (01) | DRG 465 ==
LOC: ER 15:07 → OVERFLOW 23:13 → WEST WING 05-15 18:09
PROVIDERS: ADMIT Hospitalist; ATTEND Hospitalist
PROC: 0TF7XZZ Fragmentation in Left Ureter, External Approach (ICD-10-PCS; 2025-05-18)
PROC: 0T778DZ Dilation of Left Ureter with Intraluminal Device, Via Natural or Artificial Opening Endoscopic (ICD-10-PCS; principal; 2025-05-18 13:25)
DX: N13.2 Hydronephrosis with renal and ureteral calculous obstruction (principal); N17.9 Acute kidney failure, unspecified; K76.0 Fatty (change of) liver, not elsewhere classified; N18.9 Chronic kidney disease, unspecified; K57.30 Diverticulosis of large intestine without perforation or abscess without bleeding; R79.89 Other specified abnormal findings of blood chemistry; K59.00 Constipation, unspecified
CPT/HCPCS: 36415; 71045; 74018; 74176; 76775; 76857; 80048; 80053; 81001; 83690; 85025; 85610; 85730; 86850; 86900; 86901; 93005; 96374; 96375; G0378; J1100; J1885; J2003; J2250; J2405; J2704